=== PATIENT | male | born 1935 ===

== ENCOUNTER 2022-01-25 13:22 | Day surgery (SDC) | payer MEDICARE, BC ==
[~2022-01-25] VITALS: Ht 172.7 cm; Wt 88.6 kg
[2022-01-25] MEDS ORDERED: COREG12.5 MG PO (14:33)
[2022-01-25] MEDS ORDERED: COLCRYS0.6 MG PO (14:34)
[2022-01-25] MEDS ORDERED: CRESTOR 10MG10 MG PO (14:35)
[2022-01-25] MEDS ORDERED: ELIQUIS 5MG PO (14:36)
[2022-01-25] MEDS ORDERED: FLOMAX 0.40.4 MG/CAP PO (14:36)
[2022-01-25] MEDS ORDERED: LASIX 20MG TABL20 MG PO (14:37)
[2022-01-25] MEDS ORDERED: MICARDIS80 MG PO (14:38)
[2022-01-25] MEDS ORDERED: PROSCAR 5MG5 MG PO (14:40)
[2022-01-25] MEDS ORDERED: ZYLOPRIM 100MG100 MG PO (14:40)
[2022-01-25] MEDS ORDERED: ASPIRIN 81M81 MG/TA2 PO (14:41)
[2022-01-25] MEDS ORDERED: MULTIPLE VITAMI1 TA1 PO (14:41)
[2022-01-25] MEDS ORDERED: VITAMIN C500 MG PO (14:42)
[2022-01-25 14:47] VITALS: BP 171/98; PULSE 82; TEMP 97.8
[2022-01-25 16:20] VITALS: BP 138/83; PULSE 69; TEMP 97.3
--- NOTE | 2022-01-25 16:20 | NUR ---
Pt arrived from procedure drowsy but oriented. Pt was assisted with ambulating from cart to chair, gait is mildly unsteady. Vitals obtained. Verbal room report obtained. Warm blankets and ice water provided. Pt is to remain on clear liquids until transfer to [place]. Call velasquez is within reach on side table.
[2022-01-25 16:35] VITALS: BP 170/98; PULSE 59
--- NOTE | 2022-01-25 16:35 | NUR ---
Vitals obtained and BP has risen to pre-op levels. Pt requested orange jello. Denies nausea. No vomiting. Call velasquez remains within reach.
[2022-01-25 16:50] VITALS: BP 176/115; PULSE 55
--- NOTE | 2022-01-25 16:50 | NUR ---
Pt is awake and oriented x3. Pt has finished his jello and continues to drink water. BP is elevated. Call velasquez remains within reach. Pt denies pain and states "feeling fine".
[2022-01-25 17:05] VITALS: BP 146/98; PULSE 58
--- NOTE | 2022-01-25 17:05 | NUR ---
Vitals obtained. BP has come down to 146/98. DC instructions and educational material reviewed with the pt, who verbalized understanding and signed the realted paperwork. Questions answered. Pt is waiting on EMS transport to arrive. IV continues. Call velasquez remains within reach on side table.
--- NOTE | 2022-01-25 17:56 | NUR ---
Verbal over the phone report provided to MISAEL Ramos at [facility] by MISAEL Ritchie
--- NOTE | 2022-01-25 19:05 | NUR ---
[facility] here to transfer pt to [facility]. Hand-off report given to EMS staff, and discharge information folder given to them as well.
== END 2022-01-25 19:05 ==
LOC: SDCO 13:22
DX: K92.1 Melena (principal); K57.30 Diverticulosis of large intestine without perforation or abscess without bleeding; Z87.891 Personal history of nicotine dependence; K25.3 Acute gastric ulcer without hemorrhage or perforation
CPT/HCPCS: J2704; J7030